=== PATIENT | male | born 1990 | race Caucasian/White ===

== ENCOUNTER 2018-06-22 00:56 | Emergency (ER) | payer OTHER ==
[~2018-06-22] VITALS: Ht 185.4 cm; Wt 86.2 kg
--- NOTE | ~2018-06-22 | EKG ---
[address] [address] ELECTROCARDIOGRAM REPORT Name: SUSANA SYED Room #: [facility]#: [id number] Admission: 06/22/18 Attend Phys: Discharge: 06/22/18 Date of : 89 Report #: [id number] THIS REPORT FOR: //name// [facility] ED Test Date: 2018-06-22 Test Time: 01:15:01 Pat Name: SUSANA SYED Department: Room: Gender: Rip Saw Operator: JOSE CARLOS : 1990 Requested By: Karla Wallace Order Number: [id number] MD: Jesús Byrd Measurements Intervals [place] Rate: 95 P: 45 [place]: 162 QRS: 45 QRSD: 86 T: 59 QT: 356 QTc: 448 Interpretive Statements Sinus rhythm Early repolarization Compared to ECG 02/06/2008 06:51:24 No significant change was found Electronically Signed On 06-22-2018 7:35:49 CDT by Jesús Byrd [email or web address] <ELECTRONICALLY SIGNED> By: Jesús Byrd MD, [facility] 06/22/18 [id number] [id number] Jesús Byrd MD, FACC /EPI
[2018-06-22 01:46] LABS: ABSOLUTE NEUTROPHILS 7.8 thou/uL (1.4-8.2); BASOPHILS 0.7 % (0.0-2.0); EOSINOPHILS 0.4 % (0.0-3.0); HEMATOCRIT 42.2 % (42.0-52.0); HEMOGLOBIN 14.3 gm/dL (14.0-18.0); LYMPHOCYTES 15.9 % (24.0-44.0); MCH 29.2 pg (26.0-34.0); MCV 85.8 fL (80.0-100.0); PLATELET COUNT 321 thou/uL (150-400); RBC 4.92 mil/uL (4.50-6.00); RDW 14.3 % (10.5-14.5); WBC 10.4 thou/uL (4.0-11.0)
[2018-06-22 01:53] LABS: ANION GAP 9 mmol/L (7-16); BUN 19 mg/dL (7-18); CALCIUM 9.9 mg/dL (8.5-10.1); CHLORIDE 102 mmol/L (98-107); CO2 26 mmol/L (21-32); CREATININE 1.3 mg/dL (0.7-1.3); GLUCOSE 117 mg/dL (74-106); POTASSIUM 4.3 mmol/L (3.5-5.1); SODIUM 137 mmol/L (136-145)
[2018-06-22 02:02] LABS: TROPONIN-I <0.06 ng/mL (<0.06)
[2018-06-22 04:11] VITALS: BP 132/72
== END 2018-06-22 04:13 | disposition home or self-care (01) ==
LOC: ER 00:56
PROVIDERS: Emergency Medicine
DX: S46.811A Strain of other muscles, fascia and tendons at shoulder and upper arm level, right arm, initial encounter (principal); R06.00 Dyspnea, unspecified; F17.210 Nicotine dependence, cigarettes, uncomplicated; X58.XXXA Exposure to other specified factors, initial encounter; Y92.89 Other specified places as the place of occurrence of the external cause; Y93.89 Activity, other specified; Y99.8 Other external cause status